=== PATIENT | female | born 1940 | race Caucasian/White ===

== ENCOUNTER 2017-05-07 13:14 | Emergency (ER) | payer MEDICARE ==
[~2017-05-07] VITALS: Ht 165.1 cm; Wt 99.8 kg
--- OUTSIDE RECORDS SUMMARY | 2017-05-07 13:22 | XMS REPORT ---
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 Name Role Phone MAGGIE PATEL CP Unavailable Allergies, Adverse Reactions, Alerts Substance Reaction Event Type penicillin Info Not Available Non Drug Allergy iodine Info Not Available Non Drug Allergy sulfa drugs Info Not Available Non Drug Allergy latex Info Not Available Non Drug Allergy Problems Problem Type Condition Code Onset Dates Condition Status Assessment Encounter for dental examination Z01.20 Active Medications Medication Code System Code Instructions Start Date End Date Status Dosage Multi Vitamin Daily NDC 69258-48296 not defined Tylenol NDC 0 not defined Lasix NDC [address]-56 not defined Procedures Procedure Coding System Code Date Dental no charge CPT-4 D0099 July 30, 2015 CONSULTATION SEE ALSO CPT CPT-4 D9310 July 30, 2015 Results No Known Results Summary Purpose [employer] Submission
[2017-05-07] MEDS ORDERED: BUME2TAB3 (14:03)
[2017-05-07] MEDS ORDERED: PRD10T (14:03)
[2017-05-07] MEDS ORDERED: LEVO150T6 (14:03)
--- NOTE | 2017-05-07 14:14 | ED Lower Extremity ---
General Chief Complaint: Lower Extremity Stated Complaint: REQUEST FOR ULTSOUND ON LEGS Nursing Triage Note: ARRIVED VIA WC TO ROOM 04. SENT FROM [facility]. DX WITH A STAFF INFECTION TO RIGHT LEG BUT STATES SHE TESTED POSITIVE IN HER BLOOD FOR A POSSIBLE BLOOD CLOT ET IS HERE FOR A ULTRASOUND. Nursing Sepsis Screen: No Definite Risk Source: patient, family (son) Exam Limitations: no limitations History of Present Illness Time seen by provider: 14:04 Initial Comments Patient has ER by private conveyance with chief complaint that she just came from [facility] where she was evaluated for one week of increased swelling in her right lower extremity with redness and pain. She says a days ago her and she had not been taking her Bumex or any of her medicines because of the stress and she had been standing on her feet several days and I'll wrote for the wait and and she just noticed a couple days ago that she was having quite a bit of swelling in her bilateral lower extremity his right more than left. She is having quite a bit of pain which she treated having to stand for so long. She also feels hard painful red knots in the back of her right leg. She is not on any blood thinners nor does she have a history of DVTs or clots. She has no chest pain or shortness of breath. She was evaluated at [facility] and had normal labs except for a d-dimer of 2000 and CRP of 26.9. He was the feeling of the practitioner in [place] that she had cellulitis and so he prescribed her antibiotics and center appear to get an ultrasound to rule out DVT. Allergies and Home Medications Allergies Coded Allergies: dexlansoprazole (Verified Allergy, Severe, HEADACHE, 05/07/17) metronidazole (Verified Allergy, Severe, TONGUE BURNING, 05/07/17) sodium chloride (Verified Allergy, Severe, HEARING LOSS, 05/07/17) NSAIDS (Non-Steroidal Anti-Inflamma (Verified Allergy, Unknown, 05/07/17) Penicillins (Verified Allergy, Unknown, 05/07/17) Sulfa (Sulfonamide Antibiotics) (Verified Allergy, Unknown, 05/07/17) albuterol (Verified Allergy, Unknown, 05/07/17) ciprofloxacin (Verified Allergy, Unknown, 05/07/17) clarithromycin (Verified Allergy, Unknown, 05/07/17) fluconazole (Verified Allergy, Unknown, 05/07/17) adama (Verified Allergy, Unknown, 05/07/17) iodine (Verified Allergy, Unknown, 05/07/17) lansoprazole (Verified Allergy, Unknown, 05/07/17) minocycline (Verified Allergy, Unknown, 05/07/17) ofloxacin (Verified Allergy, Unknown, 05/07/17) rabeprazole (Verified Adverse Reaction, Unknown, VOMITING, 05/07/17) Uncoded Allergies: CAT GUT (Allergy, Unknown, 05/07/17) DYES (Allergy, Unknown, 05/07/17) FRESH WALNUT MEAT (Allergy, Unknown, 05/07/17) MSG (Allergy, Unknown, 05/07/17) NOVICANE (Allergy, Unknown, 05/07/17) Home Medications Bumetanide 2 Mg Tablet, (Reported) Levothyroxine Sodium 150 Mcg Tablet, (Reported) Prednisone 10 Mg Tab, (Reported) Constitutional: No chills, No diaphoresis EENTM: No ear discharge, No ear pain Respiratory: No cough, No hemoptysis, No phlegm, No short of breath Cardiovascular: No chest pain, No palpitations Gastrointestinal: No abdominal pain, No constipation, No diarrhea, No nausea Genitourinary: No discharge, No dysuria Skin: see HPI Past Xqozdgw-Qadqyy-Kppsuv Hx Patient Social History Alcohol Use: Rarely Uses Recreational Drug Use: No Smoking Status: Never a Smoker Recent Foreign Travel: No Contact w/Someone Who Travel: No Recent Infectious Disease Expo: No Surgeries History of Surgeries: Yes (POLYPS) Surgeries: Appendectomy, Bowel Surgery, Gallbladder, Hysterectomy Respiratory History of Respiratory Disorde: No Cardiovascular History of Cardiac Disorders: No Neurological History of Neurological Disord: No Genitourinary History of Genitourinary Disor: No Gastrointestinal History of Gastrointestinal Di: No Musculoskeletal History of Musculoskeletal Dis: Yes (CHRONIC LEG PAIN) Endocrine Endocrine Disorders: Hypothyroidsim Cancer History of Cancer: No Psychosocial History of Psychiatric Problem: No Integumentary History of Skin or Integumenta: Yes Skin/Integumentary Disorders: Recent Skin Changes Physical Exam Vital Signs Vital Sign - Last 12Hours 05/07/17 13:30 Temp 98.0 Pulse 99 Resp 18 B/P (MAP) 149/68 (95) Pulse Ox 97 Capillary Refill : Less Than 3 Seconds General Appearance: WD/WN, mild distress HEENT: PERRL/EOMI, pharynx normal Cardiovascular: normal peripheral pulses, regular rate, rhythm Respiratory: chest non-tender, lungs clear, normal breath sounds, no respiratory distress, no accessory muscle use Gastrointestinal: non tender, soft Hips: bilateral hip non-tender, bilateral hip normal inspection, bilateral hip normal range of motion, bilateral hip no evidence of injury Legs: left leg non-tender, left leg normal range of motion, left leg no evidence of injury, right leg nodules, right leg pain, right leg soft tissue tenderness, right leg swelling, right leg other (erythema) Knees: bilateral knee non-tender, bilateral knee normal inspection, bilateral knee normal range of motion, bilateral knee no evidence of injury Ankles: bilateral ankle non-tender, bilateral ankle normal range of motion, bilateral ankle no evidence of injury Feet: bilateral foot non-tender, bilateral foot normal inspection, bilateral foot normal range of motion, bilateral foot no evidence of injury Neurologic/Tendon: normal sensation, normal motor functions, normal tendon functions, responds to pain, no evidence tendon injury Neurologic/Psychiatric: alert, normal mood/affect, oriented x 3 Skin: other (erythematous tender nodule over the right calf posterior) Progress/Results/Core Measures Results/Orders My Orders Orders - KRISTINE DE LA FUENTE Us Venous Lower Ext Rt (05/07/17 14:06) Vital Signs/I&O Vital Sign - Last 12Hours 05/07/17 13:30 Temp 98.0 Pulse 99 Resp 18 B/P (MAP) 149/68 (95) Pulse Ox 97 Blood Pressure Mean: 95 Progress Note : Time: 14:21 Progress Note Reviewed the labs that came with her from [facility] that demonstrated normal white blood cell count and normal BMP just elevated CRP of 26.9 and d-dimer of 2009. 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 Diagnostic Imaging Diagonstic Imaging: Ultrasound Plain Films/CT/US/NM/MRI: leg Comments NAME: MARNI MATTHEWS MED REC#: [id number] PHYSICIAN: KRISTINE DE LA FUENTE MD CC: POLO ACUNA MD; KRISTINE DE LA FUENTE Page 1 of 1 RADIOLOGY REPORT VIA [facility], [place] CC: POLO ACUNA MD; KRISTINE DE LA FUENTE Page 1 of 1 RADIOLOGY REPORT NAME: MARNI MATTHEWS [facility] REC#: [id number] PT STATUS: REG ER : 1940 PHYSICIAN: KRISTINE DE LA FUENTE MD ADMIT DATE: 05/07/17/ER Signed Date of Exam: 05/07/17 US VENOUS LOWER EXT RT PROCEDURE: US right lower extremity venous. TECHNIQUE: Multiple real-time grayscale images were obtained over the right lower extremity in various projections. Additional duplex Doppler and color Doppler images were also obtained. INDICATION: Right calf pain. FINDINGS: The right common femoral, femoral and popliteal veins demonstrate normal response to compression, augmentation and Valsalva. There is some superficial thrombophlebitis in the right mid calf within a varicose vein. There are no abnormal fluid collections or masses. IMPRESSION: 1. No evidence of deep venous thrombosis in the right lower extremity. 2. Focal area of superficial thrombophlebitis within a varicose vein along the medial aspect of the calf. Dictated by: Dictated on workstation # [id number] Dict: 05/07/17 1446 Trans: 05/07/17 1515 Interpreted by: POLO ACUNA MD Electronically signed by: POLO ACUNA MD 05/07/17 1515 Reviewed: Reviewed by Me Departure Impression Impression: Primary Impression: Cellulitis Qualified Codes: L03.115 - Cellulitis of right lower limb Additional Impression: Thrombophlebitis Disposition: 01 HOME, SELF-CARE Condition: Stable Departure-Patient Inst. Decision time for Depature: 15:37 Referrals: LISY STARK DO (PCP/Family) Primary Care Physician Patient Instructions: Cellulitis (Skin Infection), Adult (DC) Add. Discharge Instructions: Take the antibiotics 1 capsule 4 times a day by mouth with some food or drink. 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 Follow-up with your primary care physician in one to 2 weeks for further management. If you begin to have chest pain, shortness of breath or fever above 102.5 it does not respond to Tylenol or Motrin please return to the ER for further evaluation and management. All discharge instructions reviewed with patient and/or family. Voiced understanding. Scripts Cephalexin (Keflex) 500 Mg Capsule 500 MG PO QIDACHS for 10 Days, #40 CAP 0 Refills Prov: KRISTINE DE LA FUENTE 05/07/17 Copy Copies To 1: LISY STARK TITUS J May 07, 2017 14:14
--- NOTE | 2017-05-07 14:51 | Diagnostic Imaging Report ---
PROCEDURE: US right lower extremity venous. TECHNIQUE: Multiple real-time grayscale images were obtained over the right lower extremity in various projections. Additional duplex Doppler and color Doppler images were also obtained. INDICATION: Right calf pain. FINDINGS: The right common femoral, femoral and popliteal veins demonstrate normal response to compression, augmentation and Valsalva. There is some superficial thrombophlebitis in the right mid calf within a varicose vein. There are no abnormal fluid collections or masses. IMPRESSION: 1. No evidence of deep venous thrombosis in the right lower extremity. 2. Focal area of superficial thrombophlebitis within a varicose vein along the medial aspect of the calf. Dictated by: Dictated on workstation # [id number]
[2017-05-07] MEDS ORDERED: CEPH-507 PO (15:40)
[2017-05-07 15:50] VITALS: BP 143/75
== END 2017-05-07 15:50 | disposition home or self-care (01) ==
LOC: ER 13:19
DX: L03.115 Cellulitis of right lower limb (principal); I80.3 Phlebitis and thrombophlebitis of lower extremities, unspecified; Z86.718 Personal history of other venous thrombosis and embolism; Z86.010 Personal history of colon polyps; Z90.49 Acquired absence of other specified parts of digestive tract; Z90.710 Acquired absence of both cervix and uterus
CPT/HCPCS: 99282